=== PATIENT | female | born 1975 | race African-American/Black ===

== ENCOUNTER 2019-03-10 19:06 | Emergency (ER) | payer SELFPAY ==
--- NOTE | 2019-03-10 19:07 | ED Physician Documentation ---
General Adult - HISTORIAN Historian: patient - HPI Stated Complaint: states she is unresponsive after c/o chest pain Chief Complaint: Chest Pain Onset: hours (several and severe headache x 1 hour ) Timing: still present Severity: severe (10/10 headache ) Further Comments: yes (She states several hours ago - without injury she had chest pain and per on way to ER she was unresponsive. She states her head is hurting for one hour and she states it is 10/10 with no OTC meds or treatments tried. She denies any past medical histoy) - ROS CONST: no problems CVS/RESP: chest pain. denies: shortness of breath, cough GI/: none MS/SKIN/LYMPH: none NEURO/PSYCH: headache - PAST HX Past History: none Other History: none Surgeries/Procedures: none Immunizations: UTD - SOCIAL HX Smoking History: non-smoker Alcohol Use: none Drug Use: none - FAMILY HX Family History: No - REVIEWED ASSESSMENTS Nursing Assessment Reviewed: Yes Vitals Reviewed: Yes Progress - Progress Progress: 2020: states she has no longer headache and she is requesting to go home DG General Adult Physical Exam - PHYSICAL EXAM GENERAL APPEARANCE: no distress EENT: eye inspection normal, pharynx normal, no signs of dehydration NECK: normal inspection RESPIRATORY: no resp distress, chest non-tender, breath sounds normal CVS: reg rate & rhythm, heart sounds normal, equal pulses ABDOMEN: soft, normal bowel sounds, no distension BACK: normal inspection, no CVA tenderness SKIN: warm/dry EXTREMITIES: non-tender, normal range of motion, no evidence of injury NEURO: oriented X3 Discharge Clincal Impression: Headache Qualifiers: Headache type: unspecified Headache chronicity pattern: acute headache Intractability: not intractable Qualified Code(s): R51 - Headache Referrals: Primary Doctor,No [Primary Care Provider] - 2 Days Comments: 1. OTC meds as directed as needed for symptoms 2. Increase fluids 3. Rest 4. Follow up with PCP 5. Return to ER for any increased concerns Condition: Stable Disposition: 01 HOME, SELF-CARE Decision to Admit: NO Date of Decison to Admit: 03/10/19 Decision Time: 20:26
[2019-03-10 19:27] VITALS: BP 171/95
--- NOTE | 2019-03-10 19:30 | Diagnostic Imaging Report ---
PATIENT MR#: [id number] PATIENT PATIENT NAME: JOLENE QUESADA DATE OF : 1975 REFERRING PHYSICIAN: Natalie Salter EXAM DATE: 03/10/2019 ACCESSION NUMBER: [id number] EXAM DESCRIPTION: CHEST 1VIEW HISTORY: 43-year-old female with chest pain. COMPARISON: None available. TECHNIQUE: Single portable AP view of the chest was performed. FINDINGS: No pneumothorax, consolidative infiltrates, or pulmonary edema. The heart is not enlarged. IMPRESSION: No acute intrathoracic process identified. Read by: Dr. Paco Mckeon Transcribed by: Transcribed Date: Electronically signed by: Dr. Paco Mckeon Date signed: 03/10/2019 7:29:17 PM
[2019-03-10 19:47] LABS: eGFR (Non-African) > 60
--- NOTE | 2019-03-10 19:48 | Diagnostic Imaging Report ---
PATIENT MR#: [id number] PATIENT PATIENT NAME: JOLENE QUESADA DATE OF : 1975 REFERRING PHYSICIAN: Natalie Salter EXAM DATE: 03/10/2019 ACCESSION NUMBER: [id number] EXAM DESCRIPTION: CT BRAIN W/O CONTRAST HISTORY: 43-year-old female with headache and decreased mental status. COMPARISON: None available. TECHNIQUE: Noncontrast axial CT images of the head were performed. Sagittal and coronal reformatted images were obtained. FINDINGS: No intracranial hemorrhage, mass, midline shift, hydrocephalus, or evidence of acute large vessel infarct. The mastoid air cells, middle ear spaces, and partially visualized paranasal sinuses are clear. No c ranial fracture or scalp edema. There is adenoid tonsillar hypertrophy. IMPRESSION: No acute intracranial process. Read by: Dr. Paco Mckeon Transcribed by: Transcribed Date: Electronically signed by: Dr. Paco Mckeon Date signed: 03/10/2019 7:47:16 PM
[2019-03-10] MEDS: KETOROLAC TROMETHAMINE 30 MG/1ML VIAL IV ONE (20:03)
[2019-03-11 07:32] LABS: BASOPHILS % 0.8 % (0.0-1.5); NEUTROPHILS # 3.7 # k/uL (1.4-7.7)
== END 2019-03-10 20:30 | disposition home or self-care (01) ==
LOC: ED 19:06
DX: R51 Headache (principal); R07.9 Chest pain, unspecified
CPT/HCPCS: 70450; 71045; 80053; 80320; 84484; 84703; 85025; 85379; 96374; 99284; J1885; G0480; S1016